=== PATIENT | male | born 2000 | race Caucasian/White ===

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

== ENCOUNTER 2019-07-19 13:25 | Emergency (ER) | payer BC ==
[~2019-07-19] VITALS: Ht 180.3 cm; Wt 132.0 kg
[2019-07-19 13:25] VITALS: BP 128/78
[2019-07-19 13:54] LABS: BASO % 0.3 % (0.0-1.0); EOS % 0.2 % (1.0-4.0); HEMATOCRIT 47.3 % (42.0-52.0); HEMOGLOBIN 15.4 g/dl (14.0-18.0); LYMPH # 1.3 10*3/uL (1.3-4.4); LYMPH % 15.4 % (27.0-41.0); MEAN CELL VOLUME 88.6 fl (80.0-94.0); MEAN CORPUSCULAR HGB 28.8 pg (27.0-31.0); MEAN CORPUSCULAR HGB CONC 32.6 g/dl (33.0-37.0); MEAN PLATELET VOLUME 10.3 fl (9.6-12.3); MONO # 0.3 10*3/uL (0.1-1.0); MONO % 3.6 % (3.0-9.0); NEUT % 80.3 % (47.0-73.0); PLATELET COUNT AUTOMATED 255 10*3/uL (130-400); RED BLOOD COUNT 5.34 10*6/uL (4.50-5.90); RED CELL DISTRI WIDTH 12.7 % (0-14.5); WHITE BLOOD COUNT 8.7 10*3/uL (4.8-10.8)
[2019-07-19 14:07] LABS: ALBUMIN 4.3 gm/dl (3.1-4.5); ALKALINE PHOSPHATASE 77 U/L (45-117); BUN 12 mg/dl (7-24); CHLORIDE 106 mmol/L (98-107); CREATININE 0.88 mg/dL (0.70-1.30); LIPASE 96 U/L (73-393); POTASSIUM 4.3 mmol/L (3.5-5.1); SGOT/AST 58 IU/L (3-35); SGPT/ALT 143 U/L (12-78); SODIUM 139 mmol/L (136-145); TOTAL PROTEIN 8.4 gm/dL (6.4-8.2)
[2019-07-19 14:13] LABS: BILIRUBIN NEGATIVE (NEGATIVE); BLOOD 3+ (NEGATIVE); CLARITY SL CLOUDY (CLEAR); COLOR YELLOW (YELLOW); GLUCOSE NEGATIVE (NEGATIVE); KETONE NEGATIVE (NEGATIVE); LEUKO ESTERASE NEGATIVE (NEGATIVE); NITRITE NEGATIVE (NEGATIVE); PH 8.5 (5.0-9.0); UROBILINOGEN 0.2 E.U./dl (0.2-1.0)
[2019-07-19 14:18] LABS: BACTERIA TRACE; EPITHELIAL CELLS 0-2; RBC TNTC rbc/hpf (0-2); WBC 0-2 wbc/hpf (0-5)
[2019-07-19] MEDS ORDERED: ZOFRAN4 MG PO (15:36)
[2019-07-19] MEDS ORDERED: NAPROSYN500 MG PO (15:36)
[2019-07-19] MEDS ORDERED: FLOMAX0.4 MG PO (15:36)
== END 2019-07-19 15:48 | disposition home or self-care (01) ==
LOC: ED 13:25
PROVIDERS: Nurse Practitioner Family
DX: N13.2 Hydronephrosis with renal and ureteral calculous obstruction (principal)

== ENCOUNTER 2022-01-15 10:27 | Emergency (ER) | payer OTHER ==
[~2022-01-15] VITALS: Ht 180.3 cm; Wt 120.2 kg
[~2022-01-15 10:27] MED LIST: FLOMAX0.4 MG PO; NAPROSYN500 MG PO; ZOFRAN4 MG PO
[2022-01-15 10:37] VITALS: BP 140/100
[2022-01-15 10:55] LABS: BILIRUBIN Negative (Negative); BLOOD 3+ (Negative); CLARITY Cloudy (Clear); COLOR Yellow (Yellow); GLUCOSE Negative (Negative); KETONE Negative (Negative); LEUKO ESTERASE Trace (Negative); NITRITE Negative (Negative)
[2022-01-15 11:10] LABS: BACTERIA 2+; RBC 51-100 rbc/hpf (0-2); WBC 16-20 wbc/hpf (0-5)
[2022-01-15 11:45] LABS: BASO # 0.1 10*3/uL (0.0-0.1); BASO % 0.6 % (0.0-1.0); EOS # 0.1 10*3/uL (0.0-0.4); EOS % 0.9 % (1.0-4.0); HEMATOCRIT 45.1 % (42.0-52.0); LYMPH # 1.3 10*3/uL (1.3-4.4); LYMPH % 16.4 % (27.0-41.0); MEAN CELL VOLUME 87.1 fl (80.0-94.0); MEAN CORPUSCULAR HGB 28.8 pg (27.0-31.0); MEAN PLATELET VOLUME 9.8 fl (9.6-12.3); MONO # 0.3 10*3/uL (0.1-1.0); MONO % 4.2 % (3.0-9.0); NEUT # 6.3 10*3/uL (2.3-7.9); NEUT % 77.5 % (47.0-73.0); PLATELET COUNT AUTOMATED 222 10*3/uL (130-400); RED BLOOD COUNT 5.18 10*6/uL (4.50-5.90); RED CELL DISTRI WIDTH 12.5 % (0-14.5); WHITE BLOOD COUNT 8.2 10*3/uL (4.8-10.8)
[2022-01-15 12:04] LABS: BUN 13 mg/dl (7-24); CHLORIDE 110 mmol/L (98-107); POTASSIUM 3.9 mmol/L (3.5-5.1); SODIUM 143 mmol/L (136-145)
[2022-01-15] MEDS ORDERED: ONDANSETRON4 MG SL (14:25)
[2022-01-15] MEDS ORDERED: FLOMAX0.4 MG PO (14:25)
[2022-01-15] MEDS ORDERED: ROXICODONE5 MG PO (14:26)
== END 2022-01-15 14:58 | disposition home or self-care (01) ==
LOC: ED 10:27
PROVIDERS: Emergency Medicine
DX: N20.1 Calculus of ureter (principal); R11.2 Nausea with vomiting, unspecified; Z87.442 Personal history of urinary calculi